=== PATIENT | female | born 1935 | race Caucasian/White ===

== ENCOUNTER 2016-07-03 05:40 | Emergency (ER) | payer MEDICARE ==
[~2016-07-03] VITALS: Ht 152.4 cm; Wt 56.0 kg
[2016-07-03] MEDS ORDERED: KETOROLAC 60 MG/2 ML (TORADOL) VIAL IM ONE (06:00)
[2016-07-03] MEDS ORDERED: HYDROcodone/APAP 5 MG/325 MG (NORCO) TAB PO ONE (06:00)
[2016-07-03] MEDS ORDERED: ED- HYDROcodone/ACETAMINOPHEN 5MG/325MG (NORCO) 6 TABLETS/BTL PO ONE (06:00)
[2016-07-03 07:05] VITALS: BP 156/107
== END 2016-07-03 07:05 | disposition home or self-care (01) ==
LOC: ED 05:41
DX: M25.571 Pain in right ankle and joints of right foot (principal)
CPT/HCPCS: 73610; 96372; 99283; A9270; J1885

== ENCOUNTER → 2016-09-28 | Outpatient (CLI) | payer MEDICARE ==
[~2016-09-28] MED LIST: ACET325T38 PO; AMT25T PO; ASPI-860 PO; BENZOPRIL; BUME1TAB4; CEFP250T2 PO; CLOP75TA3 PO; ENXP80I.8 SC; FURO-124 PO; GLIP10TA13 PO; HYDR-33 PO; HYDR-3702 PO; LANS30CA14 PO; MELO7.5T PO; METF500T4; MIRALAX 17 GM P17 GM PO; MTC5T PO; NEBI20TA2 PO; NITR0.4T; ONDAN4ODT PO; PRAV20TA PO; PRD10T PO; PRD20T PO; PRD5T PO; PRED20TA PO; PRED5TAB PO; RANI-10; SENN-115 PO; SUCR1TAB29 PO; WARF4TAB3 PO
--- NOTE | 2016-09-28 16:40 | Diagnostic Imaging Report ---
INDICATION: Gouty arthritis. AP, oblique and lateral views of the right foot are obtained. FINDINGS: There is diffuse osseous demineralization with narrowing of the interphalangeal joints of the second through fourth toes. There is no evidence of bone destruction or osseous erosion. There is mild to moderate plantar and posterior calcaneal spurring. 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 Dictated by: Dictated on workstation # [id number]
== END ==
LOC: LAB 15:24
PROVIDERS: ATTEND Family Medicine
DX: M10.071 Idiopathic gout, right ankle and foot (principal)
CPT/HCPCS: 36415; 84550